=== PATIENT | female | born 1980 | race Caucasian/White ===

== ENCOUNTER → 2021-02-27 | Outpatient (CLI) | payer BC ==
[~2021-02-27] MED LIST: PERCOCET; VICODIN ES TAB1 EACH PO; VITAMIN C; Z.0.PAXIL20 MG PO; ZYRTEC; ZYRTEC D
== END ==
LOC: MRI 08:28
PROVIDERS: ATTEND Radiology Neuroradiology
DX: G35 Multiple sclerosis (principal)
CPT/HCPCS: 70551; 81025